=== PATIENT | male | born 1950 | race Caucasian/White ===

== ENCOUNTER 2016-11-09 08:43 | Observation (INO) | payer MEDICARE, OTHER ==
--- NOTE | ~2016-11-09 | EKG ---
PATIENT: ZAID ALONSO UNIT #: [id number] Ventricular Rate: 81 BPM Atrial Rate: 81 BPM P-R Interval: 150 ms QRS Duration: 94 ms Q-T Interval: 394 ms QTC Calculation(Bezet): 457 ms P Campbell: 27 degrees Calculated R Campbell: -32 degrees Calculated T Campbell: 26 degrees Diagnosis Line: Normal sinus rhythm Diagnosis Line: Left axis deviation Diagnosis Line: Minimal voltage criteria for LVH, may be normal Diagnosis Line: variant Diagnosis Line: Abnormal ECG Diagnosis Line: When compared with ECG of 09-NOV-2016 13:53, Diagnosis Line: Criteria for Septal infarct are no longer Present Diagnosis Line: Confirmed by CIERRA KNOX MD ([id number]) on 11/11/2016 Diagnosis Line: 6:07:57 PM INTERPRETING MD: ABILIO RILEY
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
--- NOTE | ~2016-11-09 | CR72 ---
[facility] A Service of [facility] & [facility] RADIOLOGY TEXT RESULTS PATIENT: ZAID ALONSO LOCATION: [facility] 333-01 : [birth year] UNIT #: [id number] AGE: [address]: Yonathan Asher MD SEX: M ORDER DR: [id number] [facility] [address] [facility] [place], [place] [address] [id number] MR#: [id number] Acc #: [id number] NAME: ZAID ALONSO : 1950 SEX: M STUDY DATE/TIME: 11/09/2016 11:58 UNIT: CEDOF ROOM: 93776 STUDY DESCRIPTION: CR Chest Single View Portable Attending Physician: Jeri Hyatt M.D. Ordering Physician: Rian Griggs M.D. Primary Care Physician: Primary Care Physician No MEDICAL IMAGING REPORT This report is preliminary unless electronic signature is present EXAM Chest portable, 11/09/2016 11:58 hours HISTORY Shortness of air today with altered mental status and possible seizure today. COMPARISON None FINDINGS Portable upright chest demonstrates heart size within normal limits. There is mild atherosclerotic change of the aorta with normal contours. The pulmonary vascularity is normal. There are no definite acute pulmonary densities or pleural effusions. Question old healed left posterior rib fracture deformity with bowing. IMPRESSION No definite acute cardiopulmonary findings. There is no pleural effusion or pneumothorax. Dictated by... Darline Moore M.D. THIS IS AN ELECTRONICALLY VERIFIED REPORT Draline Moore M.D. at 11/10/2016 9:15 AM Shaila TD: 11/09/2016 15:30 JOB #: [id number] MEDICAL IMAGING REPORT Page 1 of 1 COPY
--- NOTE | ~2016-11-09 | HP ---
Unit #: [id number] #: [id number] Patient: ZAID ALONSO [id number] [address] [address] [id number] I MR#: [id number] NAME: ZAID ALONSO ROOM: 60801 Age: 66 Sex: M Admission Date: 11/09/2016 : 1950 Attending Physician: Jeri Hyatt M.D. Primary Care Physician: No Primary Care Physician HISTORY AND PHYSICAL CHIEF COMPLAINT Seizure. HISTORY OF PRESENT ILLNESS The patient is a 66-year-old male with a past medical history of seizure disorder, cerebrovascular accident, hypertension, hyperlipidemia, DVT, GERD, COPD, peripheral vascular disease, MRSA, who presented to the emergency department from the nursing for evaluation of the above. History is obtained from chart review and discussion with ER staff, as well as from the patient's daughter, Alexia Portillo who is at bedside. The patient is unable to provide a history due to postictal state. Apparently the patient was in his usual state of health until the day of admission when he was noted to have seizure at the retirement. He apparently had urinary incontinence and was confused. He was brought to the emergency department for further evaluation. In the emergency department he was initially awake and able to follow commands. He was oriented to person and place. He was noted to have some right hand/arm weakness and poor dexterity. He had another seizure in the emergency department that lasted one to two minutes and consisted of generalized shaking. He was given 1 mg of Ativan, 1 g of Keppra. The emergency room physician spoke with Dr. Clark who advised Vimpat 200 mg IV x1, which was also given. CT of the head was done and showed no acute abnormality. There are chronic changes involving the left frontoparietal area. He is being admitted to [facility] for evaluation and further treatment. Note, he is on Tegretol for seizures at the retirement and Tegretol level is 5.5. PAST MEDICAL HISTORY 1. Admission to [facility] in 2013 for right below the knee amputation. 2. History of cerebrovascular accident with residual right-sided weakness. The patient's daughter states that his right hand is weak at baseline. He is right-handed and has been unable to write using his right hand. He is unable to eat using his right hand. She states that at baseline he is able to carry on a conversation and would be alert and oriented x2. He sometimes has word finding difficulty. 3. Seizure disorder maintained on Keppra. The patient's daughter states that he started having seizures around the time of his stroke in 2011 or 2012. 4. Hypertension. 5. Hyperlipidemia. Unit #: [id number] #: [id number] Patient: ZAID ALONSO 6. Peripheral vascular disease, status post aortobifemoral bypass. 7. COPD not on home oxygen. 8. History of DVT previously on Coumadin (per the patient's daughter) but not currently. 9. History of MRSA. PAST SURGICAL HISTORY 1. Right below the knee amputation. 2. Aortobifemoral bypass. SOCIAL HISTORY The patient is at a retirement. He is in a wheelchair. He continues to smoke a pack of cigarettes daily. There is no alcohol or illicit drug use. His code status is a full code. FAMILY HISTORY Notable for his dad having heart disease. ALLERGIES No known allergies. HOME MEDICATIONS Norvasc 10 mg daily; Anne-Colace every other day; Tegretol 100 mg 2 tablets at bedtime; Toprol XL 100 mg daily; Lipitor 40 mg daily; lisinopril 40 mg daily; naproxen 500 mg daily; aspirin 81 mg daily; Zofran 4 mg q.6 hours p.r.n.; omeprazole 20 mg daily; Brandamore 10/325 q.4 hours p.r.n.; Imodium AD p.r.n. Home medications will need to be reviewed and verified. REVIEW OF SYSTEMS A complete review of systems is unobtainable from the patient due to altered mental status. PHYSICAL EXAMINATION VITAL SIGNS: Temperature is 99.8, pulse 111, respirations 22, blood pressure 177/92, oxygen saturation is 92% on room air. GENERAL: The patient is a male who is lethargic but opens eyes to physical stimuli. HEENT: The head is atraumatic. Mucous membranes are moist. NECK: Supple. Trachea is midline. CARDIOVASCULAR: Regular rate and rhythm. LUNGS: Demonstrate a few scattered rhonchi. Breathing is not labored. ABDOMEN: Soft, nontender. Bowel sounds present in all four quadrants. EXTREMITIES: The right lower extremity has be previously amputated below the knee. There is no pedal edema involving the left lower extremity. NEUROLOGIC: The patient was apparently initially oriented to person and place and was following commands. He was noted to have right hand/arm weakness with poor dexterity. At the time of my evaluation he is not answering any questions. Not following commands. He is moving extremities to painful stimuli. PSYCH: Unable to assess. SKIN: Skin of examined areas is warm and dry. DIAGNOSTIC STUDIES IMAGING STUDIES: CT of the head shows nor acute abnormality. Chronic changes are noted in the left frontoparietal area. Chest x-ray shows no acute abnormality. Unit #: [id number] #: [id number] Patient: ZAID ALONSO LABORATORY STUDIES: Basic metabolic panel notable for a sodium of 129, potassium 3.4, chloride 96, glucose 275. Tegretol level is 5.5. Complete blood count notable for white blood cell count of 12.1. ASSESSMENT The patient is a 66-year-old male with: 1. Multiple seizures. The patient received 1 mg of Ativan, 1 g of Keppra and 200 mg of Vimpat in the emergency department. 2. History of seizure disorder maintained on Tegretol with Tegretol level of 5.5. 3. Leukocytosis: Chest x-ray is negative. Urinalysis is pending. This may be stress related. 4. Hyperglycemia. Family denies any history of diabetes. 5. Hypokalemia with potassium of 3.4. 6. History of cerebrovascular accident with residual right-sided weakness. 7. Hypertension. 8. Hyperlipidemia. 9. DVT. 10. GERD. 11. COPD with continued tobacco abuse. 12. Peripheral vascular disease, status post aortobifemoral bypass. 13. History of MRSA. PLAN 1. Admit for observation to an intermediate level. 2. NPO until awake and speech evaluation. 3. Speech therapy to evaluate and treat. 4. Seizure precautions. 5. Bedrest. 6. Fall precautions. 7. Check LFTs and magnesium, as well as INR. 8. Urinalysis with culture and sensitivity. 9. Vimpat 100 mg IV q.12 hours. 10. Neuro checks. 11. Consult Dr. Clark regarding multiple seizures. 12. Blood cultures x 2 for further evaluation of leukocytosis. 13. Urinalysis with culture and sensitivity. 14. Hemoglobin A1c. 15. Low dose sliding scale insulin with Accu-Cheks. 16. Potassium and magnesium protocol. 17. EKG and cardiac enzymes. 18. Repeat labs in the morning. 19. Additional workup and consultants based on above. 20. Regarding code status, patient is a full code. Dictated by Augustin Neal/giovanny TD: 11/09/2016 14:17 JOB #: [id number] Unit #: [id number] #: [id number] Patient: ZAID ALONSO HISTORY AND PHYSICAL Page 1 of 1 X Jeri Hyatt MD X HISTORY AND PHYSICAL
--- NOTE | ~2016-11-09 | CT71 ---
[facility] A Service of [facility] RADIOLOGY TEXT RESULTS PATIENT: ZAID ALONSO LOCATION: [facility] 333-01 : 54 UNIT #: [id number] AGE: [address]: Jeri Hyatt MD SEX: M ORDER DR: [id number] [facility] [address] [place], [place] [address] [id number] I MR#: [id number] Acc #: [id number] NAME: ZAID ALONSO : 1950 SEX: M STUDY DATE/TIME: 11/09/2016 11:48 UNIT: CEDOF ROOM: 64570 STUDY DESCRIPTION: CT Head Wo Contrast Attending Physician: Jeri Hyatt M.D. Ordering Physician: Rian Griggs M.D. Primary Care Physician: Primary Care Physician No MEDICAL IMAGING REPORT This report is preliminary unless electronic signature is present EXAM CT brain without contrast media HISTORY Seizure, dysphasia, postictal today with incontinence. TECHNIQUE Axial imaging of the brain was performed without contrast media. There are no prior studies for comparison. The CT exam was performed with one or more of the following radiation dose reduction techniques: automatic exposure control, adjustment of mA and/or kV according to patient size, and iterative reconstruction. FINDINGS There is generalized enlargement of the ventricles and CSF-containing spaces. There is a large area encephalomalacia involving the left frontal and parietal white matter and cortex. There is ipsilateral mild dilatation of the left lateral ventricle. Chronic ischemic changes are seen in the left thalamus. No mass lesions, mass effect, evidence of acute hemorrhage or edema. No fluid collections are present. The patient does have atherosclerotic disease in the vertebral arteries and both carotid siphons. CONCLUSION 1. Generalized atrophy. 2. Chronic ischemic changes involving the left frontal and parietal white matter and overlying cortex as well as the left thalamus. This is chronic. No acute intracranial findings. Dictated by... [facility] A Service of [facility] RADIOLOGY TEXT RESULTS PATIENT: ZAID ALONSO LOCATION: [facility] 333-01 : [birth year] UNIT #: [id number] AGE: [address]: Jeri Hyatt MD SEX: M ORDER DR: Santos Miramontes M.D. THIS IS AN ELECTRONICALLY VERIFIED REPORT Santos Miramontes M.D. at 11/09/2016 5:06 PM JOSE MANUEL/kay TD: 11/09/2016 15:02 JOB #: [id number] MEDICAL IMAGING REPORT Page 1 of 1 COPY
--- NOTE | ~2016-11-09 | MR17 ---
[facility] A Service of [facility] & [facility] RADIOLOGY TEXT RESULTS PATIENT: ZAID ALONSO LOCATION: C3A 333-01 : 52 UNIT #: [id number] AGE: [address]: Yonathan Asher MD SEX: M ORDER DR: [id number] [facility] [address] [place], [place] [address] [id number] MR#: [id number] Acc #: [id number] NAME: ZAID ALONSO : 1950 SEX: M STUDY DATE/TIME: 11/10/2016 15:10 UNIT: C3A PCU ROOM: 333 STUDY DESCRIPTION: MR Brain WWo Contrast Attending Physician: Yonathan Asher M.D. Ordering Physician: Julia Clark M.D. Primary Care Physician: No Primary Care Physician MRI CENTER REPORT This report is preliminary unless electronic signature is present. EXAM MRI brain with and without. HISTORY Breakthrough generalized seizures. History of seizure disorder, following stroke diagnosis in 2011 per patient's daughter. 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 Recent presentation for multiple seizures at [facility]. History of hypertension. COMMENT MRI of the brain was performed prior to and following intravenous administration of 11 mL of MultiHance. 1.5T system utilized with motion limiting sequences. Study is still considerably motion degraded due to patient's difficulty cooperating. There is a head CT for comparison from 11/09/2016 but no previous MRI. There is restricted diffusion seen in the left hippocampal formation. This is associated with T2 and FLAIR signal abnormality. On the coronal T2-weighted imaging, I believe there is fullness within the left side hippocampal formation. There is no definite pathologic enhancement. Otherwise, there is extensive encephalomalacia in the left cerebral hemisphere consistent with a previous left MCA territory thromboembolic insult. Large amount of encephalomalacia in the left frontal and left parietal lobes. There is some sparred cortex inferior left frontal lobe to more anterior left temporal lobe, but there is also involvement in the more posterior left temporal lobe contiguous with the parietal involvement extending to the lateral aspect of the left occipital lobe involving the left side basal ganglia to the posterolateral thalamus. There is some old mineral or blood product deposition in a gyriform pattern at the site of the encephalomalacia ,consistent with a remote insult. No extraaxial fluid collection or intracranial mass effect. No midline shift. No recent intracranial hemorrhage suspected on the MRI. Otherwise, there is STS. [facility] A Service of [facility] & [facility] RADIOLOGY TEXT RESULTS PATIENT: ZAID ALONSO LOCATION: C3A 333-01 : 54 UNIT #: [id number] AGE: [address]: Yonathan Asher MD SEX: M ORDER DR: mild periventricular white matter signal abnormality in the right cerebral hemisphere, some patchy signal abnormality in the brainstem, probably due to small vessel disease. There is likely also a component of left-sided Wallerian degeneration. There is fluid or inflammatory change in the left greater than right side mastoid air cells. There is a retained secretion and air-fluid level in the left maxillary sinus. There is some partial opacification of the left-sided ethmoid air cells. This is concerning for a component of acute sinusitis. At this time, the major intracranial flow voids are maintained, though there is diminished flow void left MCA territory more distally as expected. IMPRESSION 1. There is abnormally restricted diffusion seen involving the left-sided hippocampal formation. This is probably associated with mild localized mass effect. Most likely consideration given presentation with seizure is that this represents some excitotoxic edema in the setting of seizure disorder and please correlate for any clinical concern for status epilepticus. Less likely considerations would be some type of superimposed disease such as herpes encephalitis or primary brain neoplasm. Please correlate further clinically for these possibilities. There is no pathologic enhancement. I would suggest followup imaging after treatment to see if the area of restricted diffusion and signal abnormality/mild mass effect resolves. 2. Otherwise a large amount of encephalomalacia left MCA territory consistent with old infarct. Mild probable sequelae of small vessel disease. 3. Acute sinusitis involving the left maxillary sinus with a large air-fluid level. 4. The study is motion degraded. STAT * RESULT Dictated by... Karissa Butts M.D. THIS IS AN ELECTRONICALLY VERIFIED REPORT Karissa Butts M.D. at 11/10/2016 5:47 PM MARYAM/dionicio TD: 11/10/2016 17:20 JOB #: [id number] MRI CENTER REPORT Page 1 of 1 COPY
--- NOTE | ~2016-11-09 | EKG ---
PATIENT: ZAID ALONSO UNIT #: [id number] Ventricular Rate: 71 BPM Atrial Rate: 71 BPM P-R Interval: 172 ms QRS Duration: 84 ms Q-T Interval: 388 ms QTC Calculation(Bezet): 421 ms Calculated R Hitchcock: -31 degrees Calculated T Hitchcock: 6 degrees Diagnosis Line: Normal sinus rhythm with sinus arrhythmia Diagnosis Line: Left axis deviation Diagnosis Line: Septal infarct , age undetermined Diagnosis Line: Abnormal ECG Diagnosis Line: No previous ECGs available Diagnosis Line: Confirmed by LATIA WATSON MD ([id number]) on Diagnosis Line: 11/10/2016 8:48:15 AM INTERPRETING MD: SHIRLEY RILEY
--- NOTE | ~2016-11-09 | CO ---
Unit #: [id number] #: [id number] Patient: ZAID ALONSO [id number] [address] [address] [id number] I MR#: [id number] NAME: ZAID ALONSO ROOM: 333 Age: 66 Sex: M Admission Date: 11/09/2016 : 1950 Attending Physician: Yonathan Asher M.D. Primary Care Physician: No Primary Care Physician CONSULTATION REPORT CHIEF COMPLAINT We were asked to see for acute non-ST elevation myocardial infarction. Patient was admitted with seizure. HISTORY OF PRESENT ILLNESS Patient is unable to give a history. History is obtained from review of records. He is a 66-year-old white male who is usp dependent with history of seizure disorder, cerebrovascular accident, hypertension, dyslipidemia, DVT with history of anticoagulation, gastroesophageal reflux disease, COPD, peripheral vascular disease and MRSA. Presented to the emergency department from the [facility] for seizure. Patient was apparently in his usual state of health when he was noted to have a seizure at the [facility]. He had urinary incontinence and confusion. When he was brought to the emergency room, states he was initially awake and able to follow commands. He was oriented to person and place, but then he had some right hand and arm weakness, poor dexterity. He had another seizure in the emergency department where he received 1 mg of Ativan, 1 gram of Keppra and 200 mg of Vimpat. ER records state it lasted 1-2 minutes, and he was postictal and confused. PAST MEDICAL HISTORY 1. History of cerebrovascular accident with right-sided hemiparesis. States that he has right-handed weakness and unable to use his hand to write or to eat but that he could normally carry on a conversation but has word-finding difficulty. His stroke was in 2011. 2. Seizure disorder. 3. Hypertension. 4. Dyslipidemia. 5. Peripheral vascular disease. 6. COPD. 7. History of DVT, previously on Coumadin. 8. History of MRSA. 9. Patient has a right rukts-fgr-ryfq amputation. PAST SURGICAL HISTORY 1. Aortofemoral bypass. 2. Right gavfv-jui-cbdc amputation in 2013. SOCIAL HISTORY [facility] resident. Wheelchair bound. Smokes a pack of cigarettes daily. No alcohol or illicit drug use. CODE STATUS Full code. Unit #: [id number] #: [id number] Patient: ZAID ALONSO FAMILY HISTORY Father had heart disease. HOME MEDICATIONS 1. Norvasc 10 mg daily. 2. Senna 1 tab every other day. 3. Tegretol 200 mg daily. 4. Toprol XL 100 mg daily. 5. Lipitor 40 mg daily. 6. Prinivil 40 mg daily. 7. Naproxen 500 mg daily. 8. Aspirin 81 mg daily. 9. Zofran 4 mg q.6 hours p.r.n. 10. Omeprazole 20 mg daily. ALLERGIES No known allergies. REVIEW OF SYSTEMS Unable to obtain. PHYSICAL EXAMINATION GENERAL: Chronically debilitated white male who appears to be somewhat hard of hearing, as well as a poor historian and unable to answer questions appropriately. male, awake, alert, moving spontaneously about the bed. VITAL SIGNS: Temp 98.5, pulse 78, respirations 18, blood pressure 141/96, 5'7", weight 57 kg. HEENT: Normocephalic, atraumatic. No xanthelasma. Pupils equal, round and reactive to light. NECK: Supple. No jugular venous distention. No elevated CVP. CARDIOVASCULAR: S1, S2. No S3, S4. No murmurs, rubs or gallops.. Normal sinus rhythm. ABDOMEN: Positive bowel sounds. Soft. EXTREMITIES: Right gzxtz-qnz-zrbx amputation. Left - No clubbing, cyanosis or edema; 2+ pulses. NEUROLOGIC: Patient is awake. His speech is clear, but his answers are inappropriate. He basically states, "I feel fine today" and "I reckon so" to every question asked. DIAGNOSTIC STUDIES IMAGING: CT of head shows generalized atrophy, chronic ischemic changes involving the left frontal and parietal white matter and overlying cortex, as well as the left thalamus. This is chronic, but no acute intracranial findings. Chest x-ray shows no definitive acute cardiopulmonary findings. No pleural effusion. No pneumothorax. LABORATORY: Chemistry - Sodium 130, potassium 4.8, chloride 94, CO2 24, BUN 10, creatinine 1, glucose 124, AST 49, ALT 21, alkaline phosphatase 24. Total CK starting on the - , to present 327. Initial troponin 1.72, repeat 1.73 and 3.15. Hemoglobin A1C 5.6. Tegretol 5.5. Coagulation - PT 10.7, INR 1, PTT 33.2. Hemoglobin 16.6, hematocrit 49.1, white blood cell count 20.4, platelet count 184. Urinalysis showed 2+ protein, 250 glucose, 2+ blood. Blood cultures are pending results. Urine culture is also pending results. Unit #: [id number] #: [id number] Patient: ZAID ALONSO CARDIOVASCULAR: Twelve-lead EKG shows a normal sinus rhythm, ventricular rate 71, left axis deviation, septal Q waves. No ST elevation. No ST depression. Peaked T waves. ASSESSMENT/PLAN 1. Seizure disorder with recurrent seizures, on Vimpat and Keppra. 2. Leukocytosis. Blood cultures and urine cultures are still pending at time of this dictation. 3. History of CVA in 2011. 4. History of hypertension, dyslipidemia. 5. History of DVT, currently no longer on anticoagulation. 6. Peripheral vascular disease with history of aortobifemoral bypass. 7. Acute non-ST elevation myocardial infarction. He is currently on a heparin drip, IV Lopressor, nitroglycerin ointment. We will add aspirin daily. His ALT is normal at 21, AST slightly elevated. We will also add a statin and check fasting lipid panel in the a.m. We will also check a two-D echocardiogram. Nany.Yg to follow for consideration of coronary catheterization, as well as consideration for Integrilin with increasing troponin. Dr. Mccord to follow for further recommendations. Dictated by... Darcy Cleaning, Ann.P.R.N. for Augustin Huerta/jorge TD: 11/10/2016 11:38 JOB #: [id number] CONSULTATION REPORT Page 1 of 1 X X CONSULTATION REPORT
--- NOTE | ~2016-11-09 | CO ---
Unit #: [id number] #: [id number] Patient: ZAID ALONSO [id number] [facility] [address] [place], [place] [address] [id number] I MR#: [id number] NAME: ZAID ALONSO ROOM: 333 Age: 66 Sex: M Admission Date: 11/09/2016 : 1950 Attending Physician: Yonathan Asher M.D. Consultation Date: 11/09/2016 CONSULTATION REPORT PRIMARY CARE PHYSICIAN Not listed. REASON FOR CONSULT Multiple seizures. PATIENT IDENTIFICATION This is a 66-year-old male, evaluated in room #19 at [facility] ER. SOURCE OF INFORMATION Obtained from the patient's daughter at the bedside as well as medical record. HISTORY OF PRESENT ILLNESS This 66-year-old male with a past medical history of left MCA stroke and subsequent seizure disorder, who presented to [facility] with recurrent generalized seizures. He apparently had at least one event at the [facility] and another event here in the emergency room noting generalized events. He did have incontinence and appears postictal. He did receive 1 mg of IV Ativan. He was also loaded with 1 g of IV Keppra. He has not since had any witnessed seizure activity. He does appear to be postictal. He is unable to provide review of systems. I did speak with his daughter at the bedside who states that he had a stroke in 2011 that has since been residing in a nursing facility here in [place]. He was seen at [facility] [place] [facility], which is where they are from in [place]. She states that he has since his stroke had seizures, but has not had a "big seizure since 2013." She states that he may have had "some small ones" at the [facility], but has never required hospitalization since 2013 for his seizures. She states that while he is aphasic, he is alert and oriented at baseline, unable to carry conversations with others and make his needs known. She states he has not complained of any infectious symptoms or any recent illness, headache, fever, chills, change in weight or routine or change in medications or injury as of late. On arrival, his white count is 23.1, he does have a low sodium of 129 and a potassium of 3.4, his glucose is elevated at 275. His Tegretol level is therapeutic at 5.5. His CT scan is negative for any acute abnormality. He does show additional chronic areas of encephalomalacia in the left MCA territory. On evaluation, the patient does have some right-sided weakness, but is able to follow some commands. He is very lethargic, appears postictal. He can follow some commands. However though it is difficult to arouse. He can visually track. He is unable to provide any history. He does not appear to have any active focal or generalized seizure activity at this time. Unit #: [id number] #: [id number] Patient: ZAID ALONSO PAST MEDICAL HISTORY 1. History of left hemispheric stroke, details unknown. He was seen at [facility] [place] [facility] according to the patient's daughter at the bedside. She states that the seizure was in 2011. 2. Seizure disorder. She states that she does not believe he has a neurologist, but rather has managed by his primary care provider. She states that his last "big seizure event was in 2012.". 3. History of MRSA. 4. Peripheral vascular disease. 5. History of tobacco abuse. 6. COPD. 7. Hyperlipidemia. 8. GERD. 9. History of DVT. 10. History of hypertension. ALLERGIES No known drug allergies. HOME MEDICATIONS As per med rec include Norvasc 10 mg p.o. daily, senna 1 tablet p.o. every other day, Tegretol-XR 200 mg p.o. daily, Toprol-XL 100 mg p.o. daily, Lipitor 40 mg p.o. daily, Prinivil 40 mg p.o. daily, naproxen 500 mg p.o. daily, aspirin 81 mg p.o. daily, Zofran 4 mg p.o. q.6 hours p.r.n. nausea, omeprazole 20 mg p.o. before breakfast. FAMILY HISTORY Noncontributory to the presenting condition. SOCIAL HISTORY The patient resides in a nursing facility since his stroke in 2011. He has a history of tobacco use. No known alcohol use or illicit drug use. REVIEW OF SYSTEMS Unable to obtain from the patient. Otherwise as discussed above per discussion with the patient's daughter at the bedside. PHYSICAL EXAMINATION VITAL SIGNS: Temperature 97.2, he was initially 99.8; pulse 74; respirations 20; blood pressure 115/74; oxygen saturation 98% on room air. Height and weight not yet documented. NEUROLOGIC: The patient is essentially obtunded, but he is arousable. He requires repeated stimulation. He has intact airway. With attempts to arouse the patient, he does require tactile stimulation. He does open his eyes and visually tracks. He does follow some simple commands, but goes back to sleep very quickly. He is disoriented to person, place, and time. He does not recognize his daughter at the bedside, but is very obtunded. His speech is fluent, but he does not answer questions appropriately and is not oriented appropriately. Cranial nerve exam, he responds to threats in the primary visual christian. Unable to fully evaluate otherwise. Eyes are conjugate without ptosis or nystagmus. Pupils are equal, round, reactive, 3+ brisk. Extraocular movements are intact. Unable to evaluate sensation of face and scalp or fully evaluate strength of muscles of facial expression. No obvious asymmetry or flattening of nasolabial folds seen at this time. Hearing is intact to voice. Unable to assess tongue, uvula, or palate. Head turning is unremarkable spontaneously. Neck is supple. Motor exam, he can squeeze on command with the left upper Unit #: [id number] #: [id number] Patient: ZAID ALONSO extremity. He does not with the right upper extremity. He does appear to be weaker on the right side, but does move spontaneously against gravity. His right lower extremity is amputated below the knee. He does move that extremity spontaneously. His left lower extremity, he wiggles his toes on command and moves on command against gravity. Sensory exam is difficult to evaluate. He does withdraw from noxious stimuli. Gait and Romberg deferred. Reflexes, unable to elicit. Toes are equivocal on the left. Unable to assess on the right due to amputation. Coordination, unable to assess. No tremors or myoclonus seen at this time. DIAGNOSTIC STUDIES IMAGING STUDIES: As above. LABORATORY RESULTS: As above. IMPRESSION 1. Breakthrough generalized seizures. Currently, stable. 2. History of seizure disorder following stroke diagnosis in 2011 per the patient's daughter. 3. History of left middle cerebral artery stroke. Per the daughter residual right-sided weakness and expressive aphasia. Details not available at this time. He was apparently seen at [facility] [place] [facility]. 4. Leukocytosis, possibly reactive. PLAN Head CT stable with no new acute findings. It does show he has chronic infarct. Dr. Clark has added Vimpat for the patient. We will load with 200 mg and continue 100 mg b.i.d. His Tegretol is therapeutic. Thus, we are adding an extra medication. We will follow closely and observe. Further testing indicated if he does not improve though he may just be postictal at this time. He also did receive some Ativan. Nothing per the history, review of systems with family to suggest PUBLIC [employer] ATTENDANT infectious etiology at this time, but we will follow closely and further testing and evaluation with MRI and spinal tap will be done if needed. The primary is also looking for other infectious etiologies for breakthrough seizure including urinalysis, blood cultures, and the other workup. Further recommendations to be made pending workup, further clinical course, seizure precautions apply. Case was discussed with Dr. Clark and he agrees to the above. We will follow along with you. Dictated by... Paula SharmaPKerwinRHolley. for Augustin Oquendo/drew TD: 11/10/2016 06:26 JOB #: [id number] Unit #: [id number] #: [id number] Patient: ZAID ALONSO CONSULTATION REPORT Page 1 of 1 X Marilyn Stone TIME STUDY OBSERVER X CONSULTATION REPORT
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
[2016-11-09 09:25] LABS: BASOPHIL# 0.2 X10e3 (0-0.3); BASOPHIL% 0.9 % (0-2.5); EOSINOPHIL# 0.1 X10e3 (0-0.7); EOSINOPHIL% 0.4 % (0.0-7.0); HEMATOCRIT 43.8 % (38.0-50.0); HEMOGLOBIN 14.7 gm/dL (13.0-16.0); LYMPHOCYTE# 1.3 X10e3 (1.0-3.5); LYMPHOCYTE% 5.5 % (17.0-45.0); MEAN CELL VOLUME 89.8 FL (83-96); MEAN CORPUSCULAR HEMOGLOBIN 30.2 PG (28-34); MEAN CORPUSCULAR HGB CONC 33.6 g/dL (30-36); MEAN PLATELET VOLUME 8.5 FL (6.5-11.5); MONOCYTE# 1.5 X10e3 (0-1.0); MONOCYTE% 6.7 % (3.0-12.0); NEUTROPHIL# 19.9 X10e3 (1.5-7.1); NEUTROPHIL% 86.5 % (40-75); PLATELET COUNT 216 X10e3 (140-420); RED BLOOD COUNT 4.88 X10e (3.90-5.60); RED CELL DISTRIBUTION WIDTH 14.4 % (11.0-15.5); WHITE BLOOD COUNT 23.1 X10e3 (4.0-10.5)
[2016-11-09 09:26] LABS: DIFF IND YES
[2016-11-09 09:51] LABS: ANISOCYTOSIS SL; PLATELET ESTIMATE NORMAL (NORMAL)
[2016-11-09 09:55] LABS: BUN/CREATININE RATIO 5.83; CALCIUM SERUM 9.1 mg/dL (8.4-10.2); CREATININE SERUM 1.2 mg/dL (0.6-1.4); GLOM FILT RATE Estimated 63.5 mL/min (>60); POTASSIUM 3.4 mmol/L (3.5-5.1); TEGRETOL (CARBAMAZEPINE) 5.5 ug/mL (4.0-12.0)
[2016-11-09] MEDS ORDERED: NORVASC10 MG PO (13:15)
[2016-11-09] MEDS ORDERED: SENNA-TIME S T1 EACH PO (13:16)
[2016-11-09] MEDS ORDERED: TEGRETOL-XR100 MG PO (13:17)
[2016-11-09] MEDS ORDERED: TOPROL XL100 MG PO (13:17)
[2016-11-09] MEDS ORDERED: LIPITOR40 MG PO (13:17)
[2016-11-09] MEDS ORDERED: ASPIRIN81 MG PO (13:18)
[2016-11-09] MEDS ORDERED: PRINIVIL40 MG PO (13:18)
[2016-11-09] MEDS ORDERED: NAPROXEN PO (13:18)
[2016-11-09] MEDS ORDERED: ZOFRAN ODT4 MG PO (13:19)
[2016-11-09] MEDS ORDERED: HYDROCODON-ACE1 EAC5 PO (13:20)
[2016-11-09] MEDS ORDERED: OMEPRAZOLE20 M2 PO (13:20)
[2016-11-09 14:43] LABS: PROTHROMBIN TIME (PATIENT) 10.6 SECONDS (9.6-11.5)
[2016-11-09 14:45] LABS: ALBUMIN SERUM 4.5 g/dL (3.5-5.0); ALKALINE PHOSPHATASE 124 U/L (32-92); ALT (SGPT) 19 U/L (10-40); AST (SGOT) 31 U/L (10-42); BILIRUBIN, DIRECT <0.1 mg/dL (0.0-0.2); BILIRUBIN,INDIRECT 0.4 mg/dL (0.0-0.9); BILIRUBIN,TOTAL 0.5 mg/dL (0.2-2.0); CK TOTAL 172 IU/L (36-174); MAGNESIUM 1.9 mg/dL (1.6-3.0)
[2016-11-09 16:05] LABS: URINE SOURCE CLEAN CATCH
[2016-11-09 16:14] LABS: URINE APPEARANCE CLEAR; URINE BILIRUBIN NEG (NEG); URINE BLOOD 2+ (NEG); URINE COLOR YELLOW; URINE GLUCOSE 250 MG/DL (NEG); URINE KETONE NEG (NEG); URINE LEUKOCYTE ESTERASE NEG (NEG); URINE NITRATE NEG (NEG); URINE PH 7.5 (5-8); URINE PROTEIN 2+ (NEG); URINE SPECIFIC GRAVITY 1.011 (1.003-1.035); URINE UROBILINOGEN 0.2 MG/DL (NEG)
[2016-11-09 16:17] LABS: URINE BACTERIA AUWI NEG (NEGATIVE); URINE SQUAMOUS EPITHELIAL CELL OCC /[HPF]
[2016-11-09 16:21] LABS: CULTURE INDICATED? NO
[2016-11-09 20:29] LABS: PROTHROMBIN TIME (PATIENT) 10.7 SECONDS (9.6-11.5)
[2016-11-09 20:30] LABS: PARTIAL THROMBOPLASTIN TIME 26.3 SECONDS (23.5-31.3)
[2016-11-09 21:04] LABS: %MB 6.9 % (0.0-4.0)
[2016-11-10 02:45] LABS: HEMATOCRIT 49.1 % (38.0-50.0); HEMOGLOBIN 16.6 gm/dL (13.0-16.0); MEAN CELL VOLUME 89.9 FL (83-96); MEAN CORPUSCULAR HEMOGLOBIN 30.4 PG (28-34); MEAN CORPUSCULAR HGB CONC 33.8 g/dL (30-36); MEAN PLATELET VOLUME 9.6 FL (6.5-11.5); RED BLOOD COUNT 5.46 X10e (3.90-5.60); WHITE BLOOD COUNT 20.4 X10e3 (4.0-10.5)
[2016-11-10 03:46] LABS: ALBUMIN SERUM 4.6 g/dL (3.5-5.0); BILIRUBIN,TOTAL 0.9 mg/dL (0.2-2.0); CALCIUM SERUM 9.8 mg/dL (8.4-10.2); GLOM FILT RATE Estimated 79.2 mL/min (>60); MAGNESIUM 2.1 mg/dL (1.6-3.0); POTASSIUM 4.8 mmol/L (3.5-5.1); PROTEIN TOTAL SERUM 8.5 g/dL (6.0-8.3)
[2016-11-10 04:06] LABS: %MB 11.3 % (0.0-4.0)
[2016-11-11 01:46] LABS: HEMATOCRIT 42.6 % (38.0-50.0); HEMOGLOBIN 14.8 gm/dL (13.0-16.0); MEAN CELL VOLUME 87.9 FL (83-96); MEAN CORPUSCULAR HEMOGLOBIN 30.5 PG (28-34); MEAN CORPUSCULAR HGB CONC 34.7 g/dL (30-36); RED BLOOD COUNT 4.85 X10e (3.90-5.60); RED CELL DISTRIBUTION WIDTH 13.8 % (11.0-15.5)
[2016-11-11 02:52] LABS: BUN/CREATININE RATIO 21.25; CALCIUM SERUM 9.3 mg/dL (8.4-10.2); CREATININE SERUM 0.8 mg/dL (0.6-1.4); GLOM FILT RATE Estimated 94.4 mL/min (>60); POTASSIUM 4.2 mmol/L (3.5-5.1)
[2016-11-11 03:05] LABS: CHOLESTEROL 140 mg/dL (0-200); HDL CHOLESTEROL 41 mg/dL (29-75); LDL CHOLESTEROL 78 mg/dL (-130); LDL/HDL RATIO 2 RATIO (0-4); TRIGLYCERIDES 104 mg/dL (10-160)
[2016-11-11 14:04] LABS: MAGNESIUM 2.1 mg/dL (1.6-3.0); POTASSIUM 3.9 mmol/L (3.5-5.1)
== END 2016-11-11 16:50 ==
LOC: CED 08:43 → CEDOF 13:10 → C3A PCU 13:10 → CED 13:28 → CEDOF 13:28 → C3A PCU 16:30
PROVIDERS: Emergency Medicine; Family Medicine; Internal Medicine
DX: G40.909 Epilepsy, unspecified, not intractable, without status epilepticus (principal); G93.89 Other specified disorders of brain; G31.9 Degenerative disease of nervous system, unspecified; I21.4 Non-ST elevation (NSTEMI) myocardial infarction; I51.9 Heart disease, unspecified; D72.829 Elevated white blood cell count, unspecified; E11.9 Type 2 diabetes mellitus without complications; K21.9 Gastro-esophageal reflux disease without esophagitis; I10 Essential (primary) hypertension; E78.5 Hyperlipidemia, unspecified; J01.00 Acute maxillary sinusitis, unspecified; R13.10 Dysphagia, unspecified; E87.6 Hypokalemia; J44.9 Chronic obstructive pulmonary disease, unspecified; Z79.82 Long term (current) use of aspirin; Z79.1 Long term (current) use of non-steroidal anti-inflammatories (NSAID); Z79.899 Other long term (current) drug therapy; Z86.73 Personal history of transient ischemic attack (TIA), and cerebral infarction without residual deficits; Z82.49 Family history of ischemic heart disease and other diseases of the circulatory system; Z86.718 Personal history of other venous thrombosis and embolism; Z86.14 Personal history of Methicillin resistant Staphylococcus aureus infection; Z89.511 Acquired absence of right leg below knee
CPT/HCPCS: 36415; 70450; 70553; 71010; 74000; 74230; 80048; 80053; 80061; 80076; 80156; 81003; 82550; 82553; 82947; 83036; 83735; 84132; 84484; 85025; 85027; 85610; 85730; 87040; 87086; 92610; 92611; 93005; 93306; 94760; 96365; 96366; 96367; 96375; 96376; 99285; A9577; C9254; G0378; G8996-GN; G8997-GN; J1327; J1644; J1940; J1953; J2060; J3490